=== PATIENT | female | born 1995 | race African-American/Black ===

== ENCOUNTER 2020-07-27 07:25 | Day surgery (SDC) | payer BC ==
--- NOTE | 2020-07-23 08:53 | HP ---
Admitting History and Physical - Primary Care Physician PCP: Carrillo Rush - Admission Chief Complaint: left breast mass History of Present Illness: Patient is a 24 yo female with family hx of breast cancer who was noted to have a palpable left breast mass that has increased in size and has become painful. Patient had an US which revealed a 6.4 cm lobulated mass in the 12-1 position (6cm FN). Patient does give a h/o of a bx proven left breast fibroadenoma in 2013. Patient is now presenting for excisional bx of left breast mass. History Source: Patient Limitations to Obtaining History: No Limitations - Past Medical History Endocrine: Yes: Other (Adrenal insufficiency dxed 2019) Home Medications - Allergies Allergies/Adverse Reactions: Allergies Allergy/AdvReac Type Severity Reaction Status Date / Time iodine Allergy Verified 07/23/20 08:54 - Home Medications Home Medications (free text): alprazolam. Spiriva. azelastine. Lo Loestrin. tamsulosin. ibuprofen. cyclobenzaprine. ergocalciferol. hydrocortisone. Family Medical History Family Hx Cancer: Grandmother (maternal) (breast cancer at 49) Review of Systems - Review of Systems Constitutional: reports: No Symptoms Eyes: reports: Blurred Vision Neck: reports: Pain on Movement Neurological: reports: Other (Memory loss) Psychiatric: reports: Anxiety, Depression Physical Examination Constitutional: Yes: Well Nourished, Calm Cardiovascular: Yes: WNL Respiratory: Yes: WNL Breast(s): Yes: Other (Left 12 to 1 oclock 6.4 cm palpable mass. No other susp icious masses or adenopathy noted bilaterally.) Problem List - Problems (1) Breast mass, left Code(s): N63.20 - UNSPECIFIED LUMP IN THE LEFT BREAST, UNSPECIFIED QUADRANT Assessment/Plan Plan: Left breast exc bx
[2020-07-26 13:39] VITALS: BMI 22.3
[2020-07-27] MEDS ORDERED: ONDANSETRON 4 MG/2 ML VIAL IVPUSH PRN (08:46)
[2020-07-27] MEDS ORDERED: KETOROLAC TROMETHAMINE 30 MG/1 ML VIAL IVPUSH PRN (08:46)
[2020-07-27] MEDS ORDERED: DEXTROSE 5%-0.45% SALINE 1,000 ML IV SCH (09:00)
[2020-07-27] MEDS ORDERED: LIDOCAINE HCL 1%, 10 MG/ML (20ML VIAL) ONE (09:14)
[2020-07-27] MEDS ORDERED: BUPIVACAINE HCL/PF 0.5% (5MG/ML) 10 ML VIAL ONE (09:14)
[2020-07-27] MEDS ORDERED: methylPREDNISolone NA SUCC 40 MG/1 ML VIAL ONE (09:21)
[2020-07-27] MEDS ORDERED: MIDAZOLAM HCL 2 MG/2 ML SINGLE DOSE VIAL ONE (09:33)
[2020-07-27] MEDS ORDERED: PROPOFOL 20 ML ONE ×2 (09:41)
[2020-07-27] MEDS ORDERED: DEXAMETHASONE SOD PHOSPHATE 4 MG/1 ML VIAL ONE (09:42)
[2020-07-27] MEDS ORDERED: ONDANSETRON 4 MG/2 ML VIAL ONE (09:42)
[2020-07-27] MEDS ORDERED: ceFAZolin SODIUM 1 GM VIAL ONE (09:50)
[2020-07-27] MEDS ORDERED: BUPIVACAINE HCL/PF 0.25% (2.5MG/ML) 10 ML VIAL ONE (10:01)
[2020-07-27] MEDS ORDERED: BUPIVACAINE HCL/PF 0.25% (2.5MG/ML) 10 ML VIAL IJ ONE (10:03)
[2020-07-27] MEDS ORDERED: GUM MASTIC/STORAX/MSAL/ALCOHOL 1 DRP DROPSBTL MC ONE (10:07)
[2020-07-27] MEDS ORDERED: oxyCODONE HCL 5 MG TABLET PO PRN (10:33)
[2020-07-27] MEDS ORDERED: LACTATED RINGERS SOLUTION 1,000 ML IV SCH (10:45)
[2020-07-27] MEDS ORDERED: KETOROLAC TROMETHAMINE 30 MG/1 ML VIAL ONE (10:51)
[2020-07-27 12:06] VITALS: TEMP 97.7
[2020-07-27 12:32] VITALS: BP 106/68; PULSE 78
--- NOTE | 2020-07-27 12:39 | OP ---
DATE OF OPERATION: 07/27/2020 PREOPERATIVE DIAGNOSIS: Left breast biopsy. ANESTHESIA: General, intubated. ATTENDING SURGEON: Gisella Rush MD [employer]: DEEPA Padilla ESTIMATED BLOOD LOSS: Minimal. DESCRIPTION OF PROCEDURE: She was placed in the supine position. After general anesthesia was induced, the patient was intubated. The area was prepped and draped in the usual sterile fashion. The area palpated was in the left breast at 12 to 1 o'clock position. A curvilinear periareolar incision was made in that area, and using electrocautery, tissues were dissected down to the mass. The mass was then enucleated and withdrawn from the breast and submitted for permanent section. It measured approximately 6 x 4 cm. Palpation of the rest of the wound revealed no other suspicious masses. Wound was copiously irrigated with normal saline. Hemostasis was maintained with electrocautery. The area was injected with 0.25% bupivacaine for local anesthesia. The wound was then closed with interrupted subdermal 3-0 Vicryl followed by running subcuticular 4-0 Monocryl. Steri-Strips, sterile dressing, and compression bra were then applied. The patient tolerated the procedure well, was transferred to the recovery room in excellent condition. GISELLA RUSH M.D. [id number]
--- NOTE | 2020-07-30 13:20 | PATH ---
Surgical Pathology Report Patient Name: DANIELA KIRBY [facility]. Rec. #: [id number] /Age/Gender: 1995 (Age: 24) / F Account: [id number] Location: [facility] Taken: 07/27/2020 Received: 07/27/2020 Reported: 07/30/2020 Physicians: Carrillo Rush M.D. Specimen(s) Received LEFT BREAST MASS Clinical History Palpable mass Ultrasound findings: Probably benign Final Diagnosis LEFT BREAST MASS, EXCISION: BREAST TISSUE WITH FIBROADENOMA. Electronically Signed Kylee Blair M.D. Gross Description Received in formalin labeled "left breast mass," is a 6.0 x 4.8 x 3.4 cm montgomery, rubbery, unoriented mass. The outer surface is smooth and there is no attached fat or skin. There is no needle localization wire present. The specimen is inked blue and serially sectioned. Sectioning reveals homogeneous montgomery, rubbery parenchyma. No areas of hemorrhage or necrosis are identified. Survey Rodman sections are submitted in 6 cassettes. Time to formalin fixation: 5 minutes Total formalin fixation time: Approximately 32 hours. /07/28/2020 saudi07/28/2020
== END 2020-07-27 12:15 | disposition home or self-care (01) ==
LOC: FASU 07:25
PROVIDERS: ATTEND Surgery Surgical Oncology
PROC: 0HBU0ZX Excision of Left Breast, Open Approach, Diagnostic (ICD-10-PCS; principal; 2020-07-27 09:52)
DX: D24.2 Benign neoplasm of left breast (principal); N63.21 Unspecified lump in the left breast, upper outer quadrant
CPT/HCPCS: 84703; 88307-TC; 94760